=== PATIENT | male | born 1990 | race African-American/Black ===

== ENCOUNTER 2017-07-14 15:40 | Emergency (ER) | payer OTHER ==
[~2017-07-14] VITALS: Ht 167.6 cm; Wt 73.0 kg
[2017-07-14] MEDS ORDERED: SODIUM CHLORIDE 0.9% 1,000 ML IV ONE (19:02)
[2017-07-14 19:46] LABS: BASOPHILS % 0.5 % (0.0-2.0); EOSINOPHILS % 0.9 % (0.0-5.0); HEMATOCRIT. 44.1 % (42.0-52.0); HEMOGLOBIN. 14.5 g/dL (14.0-18.0); LYMPHOCYTES % 22.5 % (20.0-50.0); MEAN CORPUSCULAR HEMOGLOBIN 28.6 pg (28.0-32.0); MEAN CORPUSCULAR VOLUME 86.9 fL (80.0-94.0); MEAN PLATELET VOLUME 8.8 fl (7.4-10.4); MONOCYTES % 6.1 % (2.0-8.0); PLATELET 185 x1000/uL (130-400); RED BLOOD CELL COUNT 5.08 mill/uL (4.7-6.1); RED CELL DISTRIBUTION WIDTH 13.3 % (11.6-14.6)
[2017-07-14 19:55] LABS: CARBON DIOXIDE 26 mEq/L (21-32); CHLORIDE 105 mEq/L (98-107); TROPONIN I < 0.02 ng/mL (0.00-0.04)
[2017-07-14 21:39] VITALS: BP 100/59
== END 2017-07-14 21:35 | disposition home or self-care (01) ==
LOC: ER 15:50
DX: S05.32XA Ocular laceration without prolapse or loss of intraocular tissue, left eye, initial encounter (principal); R55 Syncope and collapse; E86.0 Dehydration; F17.200 Nicotine dependence, unspecified, uncomplicated; F12.10 Cannabis abuse, uncomplicated; X58.XXXA Exposure to other specified factors, initial encounter; Y93.89 Activity, other specified; Y92.513 Shop (commercial) as the place of occurrence of the external cause; Y99.8 Other external cause status
CPT/HCPCS: 12011; 36415; 80053; 84484; 85025; 93005; 96360; 99285; J7030; X7700; Z7610

== ENCOUNTER 2018-10-02 15:37 | Emergency (ER) | payer SELFPAY | END 2018-10-02 17:18 | disposition left against medical advice (07) | LOC: ER 15:37 | DX: M25.571 Pain in right ankle and joints of right foot (principal); Z53.21 Procedure and treatment not carried out due to patient leaving prior to being seen by health care provider ==

== ENCOUNTER 2018-10-20 04:31 | Emergency (ER) | payer SELFPAY ==
[~2018-10-20] VITALS: Ht 175.3 cm; Wt 69.0 kg
[2018-10-20] MEDS ORDERED: KETOROLAC 60MG/2ML VIAL IM STA (06:49)
[2018-10-20 08:00] VITALS: BP 118/69
== END 2018-10-20 08:22 | disposition left against medical advice (07) ==
LOC: ER 04:31
DX: S80.02XA Contusion of left knee, initial encounter (principal); F17.200 Nicotine dependence, unspecified, uncomplicated; F12.10 Cannabis abuse, uncomplicated; W01.0XXA Fall on same level from slipping, tripping and stumbling without subsequent striking against object, initial encounter; Y93.89 Activity, other specified; Y92.89 Other specified places as the place of occurrence of the external cause; Y99.8 Other external cause status; Z98.890 Other specified postprocedural states
CPT/HCPCS: 73560; 73590; 96372; 99283; J1885; Z7610

== ENCOUNTER 2018-10-25 23:18 | Emergency (ER) | payer SELFPAY ==
[~2018-10-25] VITALS: Ht 172.7 cm; Wt 69.0 kg
[2018-10-26] MEDS ORDERED: IBUPROFEN 800MG TABLET PO ONE (00:30)
[2018-10-26 00:32] VITALS: BP 98/32
[2018-10-26 01:00] LABS: CLARITY URINE CLEAR (CLEAR); COLOR URINE YELLOW (YELLOW); KETONES URINE NEGATIVE (NEGATIVE); LEUKOCYTE ESTERASE URINE 1+ (NEGATIVE); NITRITE URINE NEGATIVE (NEGATIVE); OCCULT BLOOD URINE NEGATIVE (NEGATIVE); PH URINE 5.5 (4.5-8.0); PROTEIN URINE NEGATIVE (NEGATIVE); SPECIFIC GRAVITY URINE 1.026 (1.005-1.030)
== END 2018-10-26 02:02 | disposition home or self-care (01) ==
LOC: ER 23:18
DX: M79.604 Pain in right leg (principal); N39.0 Urinary tract infection, site not specified; F17.210 Nicotine dependence, cigarettes, uncomplicated; K02.9 Dental caries, unspecified
CPT/HCPCS: 99283

== ENCOUNTER 2018-10-28 03:12 | Emergency (ER) | payer SELFPAY ==
[~2018-10-28] VITALS: Ht 172.7 cm; Wt 64.0 kg
[2018-10-28 05:03] VITALS: BP 94/57
== END 2018-10-28 05:07 | disposition home or self-care (01) ==
LOC: ER 03:12
DX: R07.89 Other chest pain (principal)
CPT/HCPCS: 93005; 99283; Z7610

== ENCOUNTER 2018-11-01 23:24 | Emergency (ER) | payer SELFPAY ==
[~2018-11-01] VITALS: Ht 175.3 cm; Wt 68.0 kg
[2018-11-02] MEDS ORDERED: IBUPROFEN 600MG TABLET PO ONE (03:00)
[2018-11-02 05:03] VITALS: BP 105/62
== END 2018-11-02 05:05 | disposition home or self-care (01) ==
LOC: ER 23:24
DX: J34.89 Other specified disorders of nose and nasal sinuses (principal); Y04.2XXA Assault by strike against or bumped into by another person, initial encounter; Y93.89 Activity, other specified; Y92.89 Other specified places as the place of occurrence of the external cause; F17.210 Nicotine dependence, cigarettes, uncomplicated; F12.90 Cannabis use, unspecified, uncomplicated
CPT/HCPCS: 99284

== ENCOUNTER 2018-11-05 06:34 | Emergency (ER) | payer SELFPAY ==
[~2018-11-05] VITALS: Ht 175.3 cm; Wt 69.0 kg
== END 2018-11-05 07:44 | disposition left against medical advice (07) ==
LOC: ER 06:34
DX: Z53.21 Procedure and treatment not carried out due to patient leaving prior to being seen by health care provider (principal)

== ENCOUNTER 2018-11-05 23:15 | Emergency (ER) | payer SELFPAY ==
[~2018-11-05] VITALS: Ht 175.3 cm; Wt 69.0 kg
[2018-11-05 23:33] VITALS: BP 141/96
== END 2018-11-06 02:18 | disposition left against medical advice (07) ==
LOC: ER 23:15
DX: S01.21XD Laceration without foreign body of nose, subsequent encounter (principal); X58.XXXD Exposure to other specified factors, subsequent encounter

== ENCOUNTER 2018-11-07 04:12 | Emergency (ER) | payer SELFPAY ==
[~2018-11-07] VITALS: Ht 172.7 cm; Wt 54.0 kg
[2018-11-07 04:18] VITALS: BP 132/76
== END 2018-11-07 04:44 | disposition left against medical advice (07) ==
LOC: ER 04:12
DX: Z53.21 Procedure and treatment not carried out due to patient leaving prior to being seen by health care provider (principal)

== ENCOUNTER 2018-11-15 11:58 | Emergency (ER) | payer SELFPAY ==
[~2018-11-15] VITALS: Ht 175.3 cm; Wt 65.0 kg
[2018-11-15] MEDS ORDERED: SODIUM CHLORIDE 0.9% 1,000 ML IV ONE (14:32)
[2018-11-15] MEDS ORDERED: KETOROLAC 30MG/ML VIAL IV STA (14:32)
[2018-11-15] MEDS ORDERED: ONDANSETRON HCL 4MG/2ML INJ IV STA (14:32)
[2018-11-15 14:48] LABS: BASOPHILS % 1.4 % (0.0-2.0); EOSINOPHILS % 5.4 % (0.0-5.0); HEMATOCRIT. 42.4 % (42.0-52.0); HEMOGLOBIN. 14.2 g/dL (14.0-18.0); LYMPHOCYTES % 48.9 % (20.0-50.0); MEAN CORPUSCULAR HEMOGLOBIN 30.2 pg (28.0-32.0); MEAN CORPUSCULAR VOLUME 90.4 fL (80.0-94.0); MONOCYTES % 8.6 % (2.0-8.0); NEUTROPHILS % 35.7 % (40.0-76.0); PLATELET 188 x1000/uL (130-400); RED BLOOD CELL COUNT 4.69 mill/uL (4.7-6.1); RED CELL DISTRIBUTION WIDTH 13.8 % (11.6-14.6)
[2018-11-15 14:50] VITALS: BP 101/61
[2018-11-15 14:54] LABS: CHLORIDE 106 mEq/L (98-107)
[2018-11-15 14:55] LABS: PROTHROMBIN TIME 10.5 sec (9.6-11.0)
[2018-11-15 14:58] LABS: ETHANOL BLOOD < 10 mg/dL
[2018-11-15 16:28] LABS: CLARITY URINE CLEAR (CLEAR); COLOR URINE DARK YELLOW (YELLOW); KETONES URINE TRACE (NEGATIVE); LEUKOCYTE ESTERASE URINE NEGATIVE (NEGATIVE); NITRITE URINE NEGATIVE (NEGATIVE); OCCULT BLOOD URINE NEGATIVE (NEGATIVE); PROTEIN URINE NEGATIVE (NEGATIVE); SPECIFIC GRAVITY URINE 1.027 (1.005-1.030)
[2018-11-15 16:45] LABS: *BENZODIAZEPINES SCREEN URINE NEGATIVE (NEGATIVE); *COCAINE SCREEN URINE NEGATIVE (NEGATIVE); METHADONE URINE SCREEN NEGATIVE (NEGATIVE)
[2018-11-15 16:46] LABS: *AMPHETAMINES SCREEN URINE NEGATIVE (NEGATIVE); *BARBITURATES SCREEN URINE NEGATIVE (NEGATIVE); CANNABINOID URINE SCREEN PRESUMTIVE POSITIVE (NEGATIVE); OPIATES URINE SCREEN NEGATIVE (NEGATIVE); PHENCYCLIDINE URINE SCREEN NEGATIVE (NEGATIVE)
== END 2018-11-15 18:00 | disposition home or self-care (01) ==
LOC: ER 11:58
DX: R10.9 Unspecified abdominal pain (principal); R45.6 Violent behavior; R03.0 Elevated blood-pressure reading, without diagnosis of hypertension; F12.10 Cannabis abuse, uncomplicated; F17.200 Nicotine dependence, unspecified, uncomplicated; Z87.442 Personal history of urinary calculi
CPT/HCPCS: 36415; 71045; 74176; 80053; 80305; 80320; 81003; 83690; 85025; 85610; 96374; 96375; 99284; J1885; J2405; J7030; G0480

== ENCOUNTER 2018-12-15 04:25 | Emergency (ER) | payer MEDICAID ==
[~2018-12-15] VITALS: Ht 177.8 cm; Wt 77.0 kg
[2018-12-15] MEDS ORDERED: IBUPROFEN 800MG TABLET PO ONE (06:45)
[2018-12-15 07:39] VITALS: BP 133/67
== END 2018-12-15 07:42 | disposition home or self-care (01) ==
LOC: ER 05:02
DX: K02.9 Dental caries, unspecified (principal)
CPT/HCPCS: 99283

== ENCOUNTER 2018-12-17 05:54 | Emergency (ER) | payer MEDICAID ==
[~2018-12-17] VITALS: Ht 177.8 cm; Wt 69.0 kg
[2018-12-17 06:40] VITALS: BP 112/65
== END 2018-12-17 08:30 | disposition left against medical advice (07) ==
LOC: ER 07:58
DX: Z53.21 Procedure and treatment not carried out due to patient leaving prior to being seen by health care provider (principal)

== ENCOUNTER 2018-12-29 00:31 | Emergency (ER) | payer MEDICAID ==
[~2018-12-29] VITALS: Ht 170.2 cm; Wt 59.0 kg
[2018-12-29 08:31] VITALS: BP 94/59
== END 2018-12-29 08:33 | disposition home or self-care (01) ==
LOC: ER 00:31
DX: M25.562 Pain in left knee (principal); F12.10 Cannabis abuse, uncomplicated
CPT/HCPCS: 73560; 99283

== ENCOUNTER 2019-01-13 23:54 | Emergency (ER) | payer MEDICAID ==
[~2019-01-13] VITALS: Ht 172.7 cm; Wt 64.0 kg
[2019-01-14 00:08] VITALS: BP 102/55
== END 2019-01-14 04:42 | disposition left against medical advice (07) ==
LOC: ER 23:54
DX: Z53.21 Procedure and treatment not carried out due to patient leaving prior to being seen by health care provider (principal)

== ENCOUNTER 2021-12-24 05:42 | Emergency (ER) | payer MEDICAID ==
[~2021-12-24] VITALS: Ht 172.7 cm; Wt 66.0 kg
[2021-12-24 06:07] VITALS: BP 113/75
[2021-12-24] MEDS ORDERED: IBUPROFEN 400MG TABLET PO ONE (06:15)
[2021-12-24] MEDS ORDERED: IBUP-2028 PO (07:00)
== END 2021-12-24 07:10 | disposition home or self-care (01) ==
LOC: ER 05:42
DX: S90.02XA Contusion of left ankle, initial encounter (principal); S90.32XA Contusion of left foot, initial encounter; V00.031A Pedestrian on foot injured in collision with rider of standing electric scooter, initial encounter; Y93.89 Activity, other specified; Y92.488 Other paved roadways as the place of occurrence of the external cause
CPT/HCPCS: 73610; 99283

== ENCOUNTER 2022-01-25 04:25 | Emergency (ER) | payer MEDICAID ==
[~2022-01-25] VITALS: Ht 175.3 cm; Wt 63.1 kg
[~2022-01-25 04:25] MED LIST: IBUP-2028 PO
[2022-01-25 04:39] VITALS: BP 128/64
== END 2022-01-25 08:47 | disposition left against medical advice (07) ==
LOC: ER 04:25
DX: Z53.21 Procedure and treatment not carried out due to patient leaving prior to being seen by health care provider (principal)
CPT/HCPCS: 99281

== ENCOUNTER 2022-01-27 05:48 | Emergency (ER) | payer MEDICAID ==
[~2022-01-27] VITALS: Ht 175.3 cm; Wt 63.2 kg
[2022-01-27 06:04] VITALS: BP 105/66
== END 2022-01-27 08:14 | disposition left against medical advice (07) ==
LOC: ER 05:48
DX: Z53.21 Procedure and treatment not carried out due to patient leaving prior to being seen by health care provider (principal)

== ENCOUNTER 2022-01-29 22:59 | Emergency (ER) | payer MEDICAID | END 2022-01-29 23:20 | disposition left against medical advice (07) | LOC: ER 22:59 | DX: Z53.21 Procedure and treatment not carried out due to patient leaving prior to being seen by health care provider (principal) ==

== ENCOUNTER 2022-01-31 00:23 | Emergency (ER) | payer MEDICAID ==
[~2022-01-31] VITALS: Ht 175.3 cm; Wt 63.0 kg
[2022-01-31 00:40] VITALS: BP 100/63
[2022-01-31] MEDS: IBUPROFEN 600MG TABLET PO NR ×2 (05:09→05:59)
[2022-01-31 07:41] LABS: BASOPHILS % 0.7 % (0.0-2.0); EOSINOPHILS % 7.9 % (0.0-5.0); HEMATOCRIT. 45.8 % (42.0-52.0); HEMOGLOBIN. 15.9 g/dL (14.0-18.0); LYMPHOCYTES % 45.3 % (20.0-50.0); MEAN CORPUSCULAR HEMOGLOBIN 31.5 pg (28.0-32.0); MEAN CORPUSCULAR VOLUME 90.5 fL (80.0-94.0); NEUTROPHILS % 37.1 % (40.0-76.0); PLATELET 169 x1000/uL (130-400); RED BLOOD CELL COUNT 5.06 mill/uL (4.7-6.1); RED CELL DISTRIBUTION WIDTH 14.1 % (11.6-14.6)
[2022-01-31 07:45] LABS: CHLORIDE 106 mEq/L (98-107)
[2022-01-31 07:59] LABS: CLARITY URINE CLOUDY (CLEAR); COLOR URINE YELLOW (YELLOW); KETONES URINE TRACE (NEGATIVE); LEUKOCYTE ESTERASE URINE NEGATIVE (NEGATIVE); NITRITE URINE NEGATIVE (NEGATIVE); OCCULT BLOOD URINE NEGATIVE (NEGATIVE); PH URINE 5.5 (4.5-8.0); PROTEIN URINE NEGATIVE (NEGATIVE); SPECIFIC GRAVITY URINE 1.022 (1.005-1.030)
[2022-01-31] MEDS ORDERED: IBUP-2029 MT (08:07)
== END 2022-01-31 08:28 | disposition left against medical advice (07) ==
LOC: ER 00:23
DX: R10.32 Left lower quadrant pain (principal)
CPT/HCPCS: 36415; 74176; 76770; 80048; 81003; 85025; 99285

== ENCOUNTER 2022-02-02 00:37 | Emergency (ER) | payer MEDICAID ==
[~2022-02-02 00:37] MED LIST changes: +IBUP-2029 MT
[2022-02-02 06:07] LABS: CHLORIDE 105 mEq/L (98-107)
[2022-02-02 06:09] LABS: BASOPHILS % 0.9 % (0.0-2.0); EOSINOPHILS % 5.5 % (0.0-5.0); HEMATOCRIT. 45.7 % (42.0-52.0); HEMOGLOBIN. 15.1 g/dL (14.0-18.0); LYMPHOCYTES % 46.8 % (20.0-50.0); MEAN CORPUSCULAR HEMOGLOBIN 30.1 pg (28.0-32.0); MEAN CORPUSCULAR VOLUME 91.3 fL (80.0-94.0); MEAN PLATELET VOLUME 8.6 fl (7.4-10.4); MONOCYTES % 7.1 % (2.0-8.0); NEUTROPHILS % 39.7 % (40.0-76.0); PLATELET 169 x1000/uL (130-400); RED BLOOD CELL COUNT 5.01 mill/uL (4.7-6.1); RED CELL DISTRIBUTION WIDTH 13.8 % (11.6-14.6)
== END 2022-02-02 06:57 | disposition left against medical advice (07) ==
LOC: ER 00:37
DX: R10.9 Unspecified abdominal pain (principal); Z87.442 Personal history of urinary calculi
CPT/HCPCS: 36415; 80053; 85025; 99283

== ENCOUNTER 2022-02-03 05:42 | Emergency (ER) | payer MEDICAID ==
[~2022-02-03] VITALS: Ht 177.8 cm; Wt 75.0 kg
[2022-02-03 06:05] VITALS: BP 98/78
== END 2022-02-03 08:33 | disposition left against medical advice (07) ==
LOC: ER 05:42
DX: Z53.21 Procedure and treatment not carried out due to patient leaving prior to being seen by health care provider (principal)

== ENCOUNTER 2022-02-05 01:59 | Emergency (ER) | payer MEDICAID | END 2022-02-05 12:00 | disposition left against medical advice (07) | LOC: ER 01:59 | DX: Z53.21 Procedure and treatment not carried out due to patient leaving prior to being seen by health care provider (principal) ==

== ENCOUNTER 2022-02-10 23:20 | Emergency (ER) | payer MEDICAID ==
[~2022-02-10] VITALS: Ht 177.8 cm; Wt 73.0 kg
[2022-02-11] MEDS ORDERED: KETOROLAC 60MG/2ML VIAL IM ONE (01:15)
[2022-02-11 01:28] VITALS: BP 113/69
[2022-02-11 01:30] LABS: HEMATOCRIT. 45.1 % (42.0-52.0); LYMPHOCYTES % 34.1 % (20.0-50.0); MEAN CORPUSCULAR HEMOGLOBIN 30.4 pg (28.0-32.0); MEAN CORPUSCULAR VOLUME 91.1 fL (80.0-94.0); MEAN PLATELET VOLUME 8.4 fl (7.4-10.4); MONOCYTES % 7.7 % (2.0-8.0); NEUTROPHILS % 54.2 % (40.0-76.0); PLATELET 181 x1000/uL (130-400); RED BLOOD CELL COUNT 4.95 mill/uL (4.7-6.1); RED CELL DISTRIBUTION WIDTH 13.5 % (11.6-14.6)
[2022-02-11 01:35] LABS: CHLORIDE 104 mEq/L (98-107)
[2022-02-11 03:11] LABS: CLARITY URINE CLEAR (CLEAR); COLOR URINE YELLOW (YELLOW); KETONES URINE TRACE (NEGATIVE); LEUKOCYTE ESTERASE URINE NEGATIVE (NEGATIVE); NITRITE URINE NEGATIVE (NEGATIVE); OCCULT BLOOD URINE NEGATIVE (NEGATIVE); PH URINE 5.5 (4.5-8.0); PROTEIN URINE TRACE (NEGATIVE); SPECIFIC GRAVITY URINE 1.022 (1.005-1.030)
[2022-02-11] MEDS ORDERED: NAPR-681 MT (03:50)
== END 2022-02-11 03:44 | disposition home or self-care (01) ==
LOC: ER 23:20
DX: N20.0 Calculus of kidney (principal); R73.9 Hyperglycemia, unspecified
CPT/HCPCS: 36415; 80048; 81003; 82962; 85025; 96372; 99283; J1885

== ENCOUNTER 2022-02-20 02:49 | Emergency (ER) | payer MEDICAID ==
[~2022-02-20] VITALS: Ht 175.3 cm; Wt 62.7 kg
[~2022-02-20 02:49] MED LIST changes: +NAPR-681 MT
[2022-02-20 03:26] VITALS: BP 103/62
== END 2022-02-20 09:23 | disposition left against medical advice (07) ==
LOC: ER 02:49
DX: Z53.21 Procedure and treatment not carried out due to patient leaving prior to being seen by health care provider (principal)

== ENCOUNTER 2022-02-21 00:54 | Emergency (ER) | payer MEDICAID ==
[~2022-02-21] VITALS: Ht 175.3 cm; Wt 63.0 kg
[2022-02-21] MEDS ORDERED: KETOROLAC 60MG/2ML VIAL IM ONE (03:15)
[2022-02-21 03:36] LABS: EOSINOPHILS % 4.1 % (0.0-5.0); HEMATOCRIT. 42.7 % (42.0-52.0); HEMOGLOBIN. 14.1 g/dL (14.0-18.0); LYMPHOCYTES % 29.7 % (20.0-50.0); MEAN CORPUSCULAR HEMOGLOBIN 30.5 pg (28.0-32.0); MEAN CORPUSCULAR VOLUME 92.2 fL (80.0-94.0); MEAN PLATELET VOLUME 8.7 fl (7.4-10.4); NEUTROPHILS % 57.2 % (40.0-76.0); PLATELET 168 x1000/uL (130-400); RED BLOOD CELL COUNT 4.63 mill/uL (4.7-6.1); RED CELL DISTRIBUTION WIDTH 13.4 % (11.6-14.6)
[2022-02-21 03:37] LABS: CLARITY URINE CLEAR (CLEAR); COLOR URINE YELLOW (YELLOW); KETONES URINE NEGATIVE (NEGATIVE); LEUKOCYTE ESTERASE URINE NEGATIVE (NEGATIVE); NITRITE URINE NEGATIVE (NEGATIVE); OCCULT BLOOD URINE NEGATIVE (NEGATIVE); PH URINE 5.5 (4.5-8.0); PROTEIN URINE NEGATIVE (NEGATIVE); SPECIFIC GRAVITY URINE 1.005 (1.005-1.030); UROBILINOGEN URINE 0.2 E.U./dL (0.2-1.0)
[2022-02-21 03:45] LABS: CHLORIDE 108 mEq/L (98-107)
[2022-02-21 05:24] VITALS: BP 121/69
== END 2022-02-21 05:26 | disposition home or self-care (01) ==
LOC: ER 00:54
DX: N20.0 Calculus of kidney (principal); N23 Unspecified renal colic
CPT/HCPCS: 36415; 76770; 80048; 81003; 85025; 96372; 99284; J1885

== ENCOUNTER 2022-06-07 02:00 | Emergency (ER) | payer OTHER ==
[~2022-06-07] VITALS: Ht 175.3 cm; Wt 68.0 kg
[2022-06-07 03:04] LABS: EOSINOPHILS % 6.1 % (0.0-5.0); HEMATOCRIT. 44.2 % (42.0-52.0); HEMOGLOBIN. 14.9 g/dL (14.0-18.0); LYMPHOCYTES % 50.3 % (20.0-50.0); MEAN CORPUSCULAR HEMOGLOBIN 31.2 pg (28.0-32.0); MEAN CORPUSCULAR VOLUME 92.4 fL (80.0-94.0); MEAN PLATELET VOLUME 7.8 fl (7.4-10.4); MONOCYTES % 11.1 % (2.0-8.0); NEUTROPHILS % 31.5 % (40.0-76.0); PLATELET 173 x1000/uL (130-400); RED BLOOD CELL COUNT 4.79 mill/uL (4.7-6.1); RED CELL DISTRIBUTION WIDTH 13.5 % (11.6-14.6)
[2022-06-07 03:12] LABS: CHLORIDE 108 mEq/L (98-107)
[2022-06-07] MEDS ORDERED: KETOROLAC 60MG/2ML VIAL IM ONE (04:15)
[2022-06-07] MEDS ORDERED: IBUP-2028 MT (05:27)
[2022-06-07 05:48] VITALS: BP 121/78
== END 2022-06-07 05:49 | disposition home or self-care (01) ==
LOC: ER 02:00
DX: R10.31 Right lower quadrant pain (principal); F17.290 Nicotine dependence, other tobacco product, uncomplicated; F12.10 Cannabis abuse, uncomplicated; Z87.19 Personal history of other diseases of the digestive system
CPT/HCPCS: 36415; 74176; 80053; 83690; 85025; 96372; 99284; J1885; Z7610

== ENCOUNTER 2022-07-09 03:58 | Emergency (ER) | payer OTHER ==
[~2022-07-09] VITALS: Ht 172.7 cm; Wt 63.6 kg
[~2022-07-09 03:58] MED LIST changes: +IBUP-2028 MT
[2022-07-09 04:10] VITALS: BP 122/62
[2022-07-09 04:36] LABS: CLARITY URINE TURBID (CLEAR); COLOR URINE YELLOW (YELLOW); KETONES URINE NEGATIVE (NEGATIVE); LEUKOCYTE ESTERASE URINE NEGATIVE (NEGATIVE); NITRITE URINE NEGATIVE (NEGATIVE); OCCULT BLOOD URINE NEGATIVE (NEGATIVE); PH URINE 7.5 (4.5-8.0); PROTEIN URINE NEGATIVE (NEGATIVE); SPECIFIC GRAVITY URINE 1.017 (1.005-1.030); UROBILINOGEN URINE 0.2 E.U./dL (0.2-1.0)
[2022-07-09] MEDS ORDERED: KETOROLAC 15MG/ML VIAL IM ONE (05:30)
[2022-07-10] MEDS ORDERED: IBUP-2029 MT (06:16)
== END 2022-07-09 05:30 | disposition left against medical advice (07) ==
LOC: ER 03:58
DX: Z53.21 Procedure and treatment not carried out due to patient leaving prior to being seen by health care provider (principal); N20.0 Calculus of kidney
CPT/HCPCS: 81003; 99283

== ENCOUNTER 2022-07-10 05:19 | Emergency (ER) | payer OTHER ==
[~2022-07-10] VITALS: Ht 172.7 cm; Wt 75.0 kg
[2022-07-10 05:28] VITALS: BP 117/71
[2022-07-10 06:05] LABS: CLARITY URINE TURBID (CLEAR); COLOR URINE YELLOW (YELLOW); KETONES URINE NEGATIVE (NEGATIVE); LEUKOCYTE ESTERASE URINE NEGATIVE (NEGATIVE); NITRITE URINE NEGATIVE (NEGATIVE); OCCULT BLOOD URINE NEGATIVE (NEGATIVE); PH URINE 7.5 (4.5-8.0); PROTEIN URINE NEGATIVE (NEGATIVE)
[2022-07-10] MEDS ORDERED: KETOROLAC 30MG/ML VIAL IM ONE (06:15)
[2022-07-10] MEDS ORDERED: IBUP-2029 MT (06:16)
== END 2022-07-10 06:51 | disposition home or self-care (01) ==
LOC: ER 05:19
DX: R10.9 Unspecified abdominal pain (principal)
CPT/HCPCS: 81003; 96372; 99283; J1885

== ENCOUNTER 2022-07-15 23:40 | Emergency (ER) | payer OTHER ==
[~2022-07-15] VITALS: Ht 177.8 cm; Wt 59.0 kg
[2022-07-16 01:00] VITALS: BP 123/76
[2022-07-16] MEDS ORDERED: IBUPROFEN 600MG TABLET PO ONE (01:00)
[2022-07-16] MEDS ORDERED: NAPR-681 MT (01:19)
== END 2022-07-16 01:35 | disposition home or self-care (01) ==
LOC: ER 23:40
DX: M25.511 Pain in right shoulder (principal); F12.10 Cannabis abuse, uncomplicated; Z79.899 Other long term (current) drug therapy
CPT/HCPCS: 99282

== ENCOUNTER 2022-09-10 04:10 | Emergency (ER) | payer OTHER ==
[~2022-09-10] VITALS: Ht 175.3 cm; Wt 73.0 kg
[2022-09-10] MEDS ORDERED: IBUP-2028 PO (05:17)
[2022-09-10 05:30] VITALS: BP 103/68
[2022-09-10] MEDS ORDERED: IBUPROFEN 400MG TABLET PO ONE (05:30)
== END 2022-09-10 05:40 | disposition home or self-care (01) ==
LOC: ER 04:19
DX: R10.9 Unspecified abdominal pain (principal)
CPT/HCPCS: 99282

== ENCOUNTER 2022-11-02 23:05 | Emergency (ER) | payer OTHER ==
[~2022-11-02] VITALS: Ht 172.7 cm; Wt 63.1 kg
[2022-11-03] MEDS ORDERED: LIDOCAINE 5% PATCH TOP SCH (00:45)
[2022-11-03] MEDS ORDERED: KETOROLAC 60MG/2ML VIAL IM ONE (00:45)
[2022-11-03 01:03] VITALS: BP 120/75
[2022-11-03 01:10] LABS: CLARITY URINE CLOUDY (CLEAR); COLOR URINE YELLOW (YELLOW); KETONES URINE NEGATIVE (NEGATIVE); LEUKOCYTE ESTERASE URINE NEGATIVE (NEGATIVE); NITRITE URINE NEGATIVE (NEGATIVE); OCCULT BLOOD URINE NEGATIVE (NEGATIVE); PROTEIN URINE NEGATIVE (NEGATIVE); SPECIFIC GRAVITY URINE 1.024 (1.005-1.030)
[2022-11-03] MEDS ORDERED: LIDO1ADH62 TP (01:41)
[2022-11-03] MEDS ORDERED: IBUP-2029 MT (01:41)
== END 2022-11-03 02:47 | disposition home or self-care (01) ==
LOC: ER 23:05
DX: S39.012A Strain of muscle, fascia and tendon of lower back, initial encounter (principal); X58.XXXA Exposure to other specified factors, initial encounter; Y93.89 Activity, other specified; Y92.89 Other specified places as the place of occurrence of the external cause; Y99.8 Other external cause status
CPT/HCPCS: 81003; 96372; 99283; J1885; Z7610

== ENCOUNTER 2022-12-02 08:28 | Emergency (ER) | payer OTHER ==
[~2022-12-02] VITALS: Ht 175.3 cm; Wt 82.0 kg
[~2022-12-02 08:28] MED LIST changes: +LIDO1ADH62 TP
[2022-12-02 09:30] VITALS: BP 132/78
[2022-12-02] MEDS ORDERED: LIDOCAINE 5% PATCH TOP ONE (09:30)
[2022-12-02] MEDS ORDERED: ACETAMINOPHEN 325MG TABLET PO ONE (09:30)
[2022-12-02] MEDS ORDERED: AMOX1TAB16 MT (10:30)
[2022-12-02] MEDS ORDERED: IBUP-2029 MT (10:30)
[2022-12-02] MEDS ORDERED: HYDR-4001 MT (10:30)
[2022-12-02] MEDS ORDERED: AMOXICILLIN/POTASSIUM CLAVULANATE 875/125MG TAB PO SCH (10:30)
== END 2022-12-02 10:56 | disposition home or self-care (01) ==
LOC: ER 08:28
DX: S02.2XXA Fracture of nasal bones, initial encounter for closed fracture (principal); S06.9XAA Unspecified intracranial injury with loss of consciousness status unknown, initial encounter; F12.10 Cannabis abuse, uncomplicated; Z98.890 Other specified postprocedural states; Z00.00 Encounter for general adult medical examination without abnormal findings; Y04.0XXA Assault by unarmed brawl or fight, initial encounter; Y93.89 Activity, other specified; Y92.89 Other specified places as the place of occurrence of the external cause; Y99.8 Other external cause status
CPT/HCPCS: 70486; 73030; 99284

== ENCOUNTER 2023-03-25 07:02 | Emergency (ER) | payer OTHER ==
[~2023-03-25] VITALS: Ht 172.7 cm; Wt 73.0 kg
[~2023-03-25 07:02] MED LIST changes: +AMOX1TAB16 MT; +HYDR-4001 MT
[2023-03-25 07:12] VITALS: O2SAT 98
[2023-03-25] MEDS ORDERED: AMOX1TAB16 PO (07:34)
[2023-03-25] MEDS ORDERED: IBUP-2030 PO (07:34)
[2023-03-25] MEDS ORDERED: AMOXICILLIN/POTASSIUM CLAVULANATE 875/125MG TAB PO NR (07:45)
[2023-03-25] MEDS ORDERED: ACETAMINOPHEN 325MG TABLET PO NR (07:45)
[2023-03-25 08:07] LABS: BASOPHILS % 0.4 % (0.0-2.0); EOSINOPHILS % 1.2 % (0.0-5.0); HEMATOCRIT. 44.7 % (42.0-52.0); HEMOGLOBIN. 15.1 g/dL (14.0-18.0); LYMPHOCYTES % 10.6 % (20.0-50.0); MEAN CORPUSCULAR HEMOGLOBIN 30.6 pg (28.0-32.0); MEAN CORPUSCULAR HGB CONC 33.8 g/dL (31.0-37.0); MEAN CORPUSCULAR VOLUME 90.4 fL (80.0-94.0); MEAN PLATELET VOLUME 8.1 fl (7.4-10.4); MONOCYTES % 7.1 % (2.0-8.0); NEUTROPHILS % 80.7 % (40.0-76.0); PLATELET 186 x1000/uL (130-400); RED BLOOD CELL COUNT 4.94 mill/uL (4.7-6.1); RED CELL DISTRIBUTION WIDTH 13.4 % (11.6-14.6); WHITE BLOOD COUNT 6.3 x1000/uL (4.5-11.0)
[2023-03-25 08:27] LABS: CHLORIDE 104 mEq/L (98-107); INDEX HEMOLYSI 1 (1-3); INDEX ICTERIC 1 (1-4); INDEX LIPEMIC 1 (1-3); POTASSIUM 3.9 mEq/L (3.5-5.1); SODIUM 135 mEq/L (136-145)
[2023-03-25 08:32] LABS: CALCIUM 8.6 mg/dL (8.5-10.1); CARBON DIOXIDE 26 mEq/L (21-32); CREATININE 0.8 mg/dL (0.6-1.3); GLUCOSE 88 mg/dL (70-105); UREA NITROGEN BLOOD 11 mg/dL (7-21)
[2023-03-25 09:53] VITALS: BP 127/81; PULSE 85; RESP 18; TEMP 98
== END 2023-03-25 09:57 | disposition home or self-care (01) ==
LOC: ER 07:02
DX: K04.7 Periapical abscess without sinus (principal)
CPT/HCPCS: 36415; 80048; 85025; 99283